=== PATIENT | male | born 1995 | race Caucasian/White ===

== ENCOUNTER 2017-02-07 12:35 | Emergency (ER) | payer SELFPAY ==
--- NOTE | 2017-02-13 08:44 | ER ---
ADMIT: 02/07/2017 RM/LOC: ER [facility] MR#: [id number] [address] [id number] [place] [address] [place] [id number] Emergency Room Report SEX: M AGE: 21 : 1995 DATE: 02/07/2017 TIME: 1235 hours. Please refer to my T-sheet for complete H and P. Briefly, patient is a 21-year-old, who comes in with penile discharge and pain when he pees. It started about 4 days ago. He is sexually active, says it has been a while, though he did not go into details. He has been using unprotected sex in the past though. PHYSICAL EXAMINATION: VITAL SIGNS: Stable. GENITAL: Shows urethra discharge. No other lesions. EMERGENCY DEPARTMENT COURSE: I gave him shot of Rocephin 1 g IM, doxy 100 p.o. Sent for GC chlamydia cultures. No followup. ASSESSMENT: Acute urethritis. PLAN: Doxycycline 100 b.i.d. for 10 days. Return if worse. Avoid sexual activity. Follow up with Dr. Espinoza to find out results in the future. Bob Goldman MD/ iman JOB #: [id number] CC: Bob Goldman MD, Attending Physician Herb Espinoza MD, Family Physician
== END 2017-02-07 14:24 | disposition home or self-care (01) ==
LOC: ER 12:35
DX: N34.2 Other urethritis (principal); F17.210 Nicotine dependence, cigarettes, uncomplicated

== ENCOUNTER 2017-02-11 18:23 | Emergency (ER) | payer SELFPAY ==
--- NOTE | 2017-02-12 19:09 | ER ---
ADMIT: 02/11/2017 RM/LOC: ER [facility] MR#: [id number] [id number] [place], [place] [id number] [place] [address] [place] [id number] Emergency Room Report SEX: M AGE: 21 : 1995 DATE: 02/11/2017 CHIEF COMPLAINT: Right flank pain. HISTORY OF PRESENT ILLNESS: This is a 21-year-old, black male, who presents with 4 hours' duration of right flank pain. 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 He states progressively throughout the day he has had increasing right flank pain with this movement. Describes it as burning, rates it is as a 9/10. No fevers chills, nausea, vomiting, diarrhea, loss of appetite, or chest pain. Worse with movement, relieved by nothing. He has not tried anything over the counter. At this point, he was recently treated for urethritis, just finished a course of doxycycline. COURSE IN THE EMERGENCY ROOM: The patient was seen and examined. Certainly, has pain with rotation of the thorax, tenderness over the lateral thorax and abdomen, concern for musculoskeletal nature, also complains of some groin pain. I did do a male genital exam. There is no testicular pain or tenderness. He does have some tenderness lateral to the right pubic symphysis. No obvious bulge or hernia sac identified. I did get a urine on him. No signs of acute infection or blood. IMPRESSION: 1. Right flank pain. 2. Muscle strain oblique. DISPOSITION: The patient is to use Tylenol or ibuprofen as needed for pain. Activity as tolerated. Continue all of his home medications. Return with worsening signs or symptoms. Follow up Dr. Espinoza. He should follow up with Dr. Espinoza if not improving. He was provided a work note excusing him for day. Okay to return tomorrow. Questions sought and answered to the best of my ability and to the patient's satisfaction. Discharged in stable condition. CADEN Rosario / Marlo Teran MD / iman JOB #: [id number] CC: Eliud Lowery MD, Attending Physician Herb Espinoza MD, Family Physician
== END 2017-02-11 21:15 | disposition home or self-care (01) ==
LOC: ER 18:23
DX: S39.011A Strain of muscle, fascia and tendon of abdomen, initial encounter (principal); R10.9 Unspecified abdominal pain; F17.210 Nicotine dependence, cigarettes, uncomplicated; Z79.899 Other long term (current) drug therapy; Z20.2 Contact with and (suspected) exposure to infections with a predominantly sexual mode of transmission

== ENCOUNTER → 2017-02-17 | Outpatient (CLI) | payer SELFPAY | END | disposition home or self-care (01) | LOC: RAD.S 17:26 | DX: R10.31 Right lower quadrant pain (principal); R11.2 Nausea with vomiting, unspecified; D72.819 Decreased white blood cell count, unspecified ==